=== PATIENT | female | born 1935 | race African-American/Black ===

== ENCOUNTER 2017-04-10 16:27 | Inpatient (IN) | payer MEDICARE, MEDICAID ==
[~2017-04-10] VITALS: Ht 167.6 cm; Wt 69.1 kg
[~2017-04-10 16:27] MED LIST: CARV12.545 PO; CLOP75TA16 PO; DOCU-138 PO; FERR-63 PO; LANS30TA4 PO; LIP40 PO; MELO-105 PO; METF500T7 PO
[2017-04-10] MEDS ORDERED: NITROGLYCERIN OINT 1GM/INCH UDPKT TD STA (18:03)
[2017-04-10] MEDS ORDERED: ASPIRIN 81MG TABLET PO STA (18:03)
[2017-04-10 18:43] LABS: HEMATOCRIT. 29.4 % (36.0-48.0); HEMOGLOBIN. 9.5 g/dL (12.0-16.0); MEAN CORPUSCULAR HEMOGLOBIN 27.9 pg (28.0-32.0); MEAN CORPUSCULAR VOLUME 86.2 fL (81.0-99.0); MEAN PLATELET VOLUME 8.6 fl (7.4-10.4); PLATELET 179 x1000/uL (130-400); RED BLOOD CELL COUNT 3.41 mill/uL (4.2-5.4); RED CELL DISTRIBUTION WIDTH 16.3 % (11.6-14.6)
[2017-04-10 18:49] LABS: INR 1.1; PROTHROMBIN TIME 11.2 sec (9.4-11.6)
[2017-04-10 18:54] LABS: CARBON DIOXIDE 27 mEq/L (21-32); CHLORIDE 104 mEq/L (98-107)
[2017-04-10 18:58] LABS: TROPONIN I 0.08 ng/mL (0.00-0.04)
[2017-04-10 19:00] LABS: PLATELET ESTIMATE NORMAL
[2017-04-11] VITALS (9 sets, daily range): BP systolic 116–158; BP diastolic 55–74
[2017-04-11] MEDS ORDERED: GLIM4TAB2 PO (02:06)
[2017-04-11] MEDS ORDERED: GABA-531 PO (02:06)
[2017-04-11] MEDS ORDERED: OXYB5TAB11 PO (02:06)
[2017-04-11] MEDS ORDERED: BUPR150T9 PO (02:06)
[2017-04-11] MEDS ORDERED: AMLO10TA80 PO (02:06)
[2017-04-11] MEDS ORDERED: IRBE1TAB31 PO (02:06)
[2017-04-11] MEDS ORDERED: MAGNESIUM/ALUMINUM HYDROXIDE/SIMETHICONE 30ML UDC PO PRN (03:15)
[2017-04-11] MEDS ORDERED: NITROGLYCERIN 0.4MG TABLET SL SL PRN (03:15)
[2017-04-11] MEDS ORDERED: DEXTROSE 50% WATER 50ML SYRINGE IV PRN (03:15)
[2017-04-11] MEDS: BLOOD SUGAR DIAGNOSTIC STRIP TEST SCH ×4 (07:40→21:22)
[2017-04-11] MEDS ORDERED: METFORMIN HCL 500MG TABLET PO SCH (08:10)
[2017-04-11] MEDS: INSULIN LISPRO 100 UNITS/ML SUBCUT SCH ×4 (08:10→21:00)
[2017-04-11] MEDS: NICOTINE 21MG PATCH TD SCH (08:51)
[2017-04-11] MEDS: BUPROPION HCL 150MG TABLET XL 24HR PO SCH (08:51)
[2017-04-11] MEDS: AMLODIPINE 10MG TABLET PO SCH (08:51)
[2017-04-11] MEDS: GLIMEPIRIDE 4MG TABLET PO SCH (08:51)
[2017-04-11] MEDS: GABAPENTIN 300MG CAPSULE PO SCH ×2 (08:51→18:25)
[2017-04-11] MEDS ORDERED: CLOPIDOGREL 75MG TABLET PO SCH (09:00)
[2017-04-11] MEDS ORDERED: ENOXAPARIN 30MG/0.3ML SYR SUBCUT SCH (09:00)
[2017-04-11] MEDS: CARVEDILOL 12.5MG TABLET PO SCH ×2 (09:00→21:33)
[2017-04-11] MEDS ORDERED: ASPIRIN 81MG EC TABLET PO SCH (09:00)
[2017-04-11] MEDS ORDERED: REGADENOSON 0.4 MG/5 ML IV ONE ×2 (09:45→12:14)
[2017-04-11 10:31] LABS: HEMATOCRIT. 30.9 % (36.0-48.0); HEMOGLOBIN. 10.2 g/dL (12.0-16.0); MEAN PLATELET VOLUME 8.6 fl (7.4-10.4); PLATELET 178 x1000/uL (130-400); RED BLOOD CELL COUNT 3.63 mill/uL (4.2-5.4)
[2017-04-11 10:52] LABS: TROPONIN I 0.12 ng/mL (0.00-0.04)
[2017-04-11] MEDS ORDERED: NITROGLYCERIN 0.4MG TABLET SL SL ONE ×2 (12:33→12:40)
[2017-04-11 12:40] LABS: PLATELET ESTIMATE NORMAL
[2017-04-11] MEDS ORDERED: ENOXAPARIN 30MG/0.3ML SYR SUBCUT NR (13:00)
[2017-04-11] MEDS: NITROGLYCERIN OINT 1GM/INCH UDPKT TD SCH ×4 (13:26→23:53)
[2017-04-11] MEDS ORDERED: SODIUM CHLORIDE 0.9% 250 ML IV ONE (13:45)
[2017-04-11] MEDS ORDERED: AMINOPHYLLINE IV ONE (13:45)
[2017-04-11 14:28] LABS: TOTAL IRON BINDING CAPACITY 308 ug/dL (250-450)
[2017-04-11 14:48] LABS: VITAMIN B12 SERUM 756 pg/mL (211-911)
[2017-04-11] MEDS: ASPIRIN 81MG EC TABLET PO SCH ×2 (16:22→18:25)
[2017-04-11] MEDS: SODIUM CHLORIDE 0.9% 1,000 ML IV SCH (16:48)
[2017-04-11] MEDS: PANTOPRAZOLE SODIUM 40 MG/VIAL IV SCH (18:29)
[2017-04-11] MEDS: HYDRALAZINE HCL 50MG TABLET PO SCH (20:33)
[2017-04-11] MEDS ORDERED: [UNRECOGNIZED DRUG - OTHER] PO SCH (21:00)
[2017-04-11] MEDS ORDERED: HYDROCHLOROTHIAZIDE PO SCH (21:00)
[2017-04-11] MEDS ORDERED: LOSARTAN POTASSIUM 50 MG TABLET PO SCH (21:00)
[2017-04-11] MEDS ORDERED: HYDROCHLOROTHIAZIDE 12.5MG CAPSULE PO SCH (21:00)
[2017-04-11] MEDS ORDERED: IRBESARTAN PO SCH (21:00)
[2017-04-11 21:28] LABS: CREATINE KINASE MB FRACTION 0.9 ng/mL (0.5-3.6); TROPONIN I 0.09 ng/mL (0.00-0.04)
[2017-04-11] MEDS: ATORVASTATIN CALCIUM 40MG TABLET PO SCH (21:33)
[2017-04-11] MEDS ORDERED: ENOXAPARIN 60MG/0.6ML SYR SUBCUT NR (22:00)
[2017-04-12] VITALS (11 sets, daily range): BP systolic 127–152; BP diastolic 56–74
[2017-04-12] MEDS: BLOOD SUGAR DIAGNOSTIC STRIP TEST SCH ×4 (06:11→21:07)
[2017-04-12] MEDS: NITROGLYCERIN OINT 1GM/INCH UDPKT TD SCH ×4 (06:14→20:15)
[2017-04-12] MEDS: SODIUM CHLORIDE 0.9% 1,000 ML IV SCH (06:14)
[2017-04-12] MEDS: INSULIN LISPRO 100 UNITS/ML SUBCUT SCH ×4 (06:21→21:22)
[2017-04-12] MEDS: GLIMEPIRIDE 4MG TABLET PO SCH (06:21)
[2017-04-12 06:41] LABS: HEMATOCRIT. 28.2 % (36.0-48.0); HEMOGLOBIN. 9.1 g/dL (12.0-16.0); MEAN CORPUSCULAR HEMOGLOBIN 27.8 pg (28.0-32.0); MEAN CORPUSCULAR VOLUME 85.6 fL (81.0-99.0); MEAN PLATELET VOLUME 8.9 fl (7.4-10.4); PLATELET 149 x1000/uL (130-400); RED BLOOD CELL COUNT 3.29 mill/uL (4.2-5.4); RED CELL DISTRIBUTION WIDTH 16.1 % (11.6-14.6)
[2017-04-12 07:44] LABS: PHOSPHORUS 3.2 mg/dL (2.5-4.9)
[2017-04-12] MEDS: HYDRALAZINE HCL 50MG TABLET PO SCH ×2 (09:00→21:21)
[2017-04-12] MEDS: ASPIRIN 81MG EC TABLET PO SCH ×2 (09:00→16:37)
[2017-04-12] MEDS: CARVEDILOL 12.5MG TABLET PO SCH ×2 (09:00→21:00)
[2017-04-12] MEDS ORDERED: SODIUM CHLORIDE 0.45% 1,000 ML IV SCH (09:00)
[2017-04-12] MEDS: BUPROPION HCL 150MG TABLET XL 24HR PO SCH (09:00)
[2017-04-12] MEDS ORDERED: MAGNESIUM 2 G PREMIX 50 ML IV NR (09:00)
[2017-04-12] MEDS: GABAPENTIN 300MG CAPSULE PO SCH ×2 (09:00→16:37)
[2017-04-12] MEDS: AMLODIPINE 10MG TABLET PO SCH (09:00)
[2017-04-12] MEDS: PANTOPRAZOLE SODIUM 40 MG/VIAL IV SCH (09:24)
[2017-04-12] MEDS: NICOTINE 21MG PATCH TD SCH (09:25)
[2017-04-12] MEDS: ACETYLCYSTEINE 200MG/ML 20% VIAL 4ML PO SCH ×2 (09:29→21:21)
[2017-04-12 11:21] LABS: PLATELET ESTIMATE NORMAL
[2017-04-12] MEDS ORDERED: NICARDIPINE 100MCG/ML 10ML VIAL (CATH LAB) IV ONE (14:03)
[2017-04-12] MEDS ORDERED: NITROGLYCERIN 50MCG/ML 10ML VIAL (CATH LAB) IV ONE (14:03)
[2017-04-12] MEDS ORDERED: HEPARIN SODIUM 1,000 UNIT/1ML VIAL IV ONE (14:03)
[2017-04-12] MEDS ORDERED: IODIXANOL 320MG/ML 100 ML BOTTLE IV ONE (14:16)
[2017-04-12] MEDS ORDERED: LIDOCAINE HCL 1% 20ML VIAL (Pyxis) INJ ONE ×2 (14:20→14:21)
[2017-04-12] MEDS ORDERED: ASPIRIN/SOD BICARB/CITRIC ACID 324MG TAB EFF ONE (14:24)
[2017-04-12] MEDS ORDERED: FENTANYL CITRATE/PF 50MCG/ML 2ML VIAL ONE (14:30)
[2017-04-12] MEDS ORDERED: MIDAZOLAM HCL 2 MG/2 ML VIAL ONE (14:30)
[2017-04-12] MEDS ORDERED: SODIUM CHLORIDE 0.45% 1,000 ML IV ONE (15:00)
[2017-04-12] MEDS ORDERED: MORPHINE SULFATE 2 MG/ML CPJ (NOT FOR IM USE) IV PRN (15:00)
[2017-04-12] MEDS ORDERED: ONDANSETRON HCL 4MG/2ML VIAL IV PRN (15:00)
[2017-04-12] MEDS ORDERED: ATROPINE SULFATE 1MG/10ML SYR IV PRN (15:00)
[2017-04-12] MEDS ORDERED: ACETAMINOPHEN 325MG TABLET PO PRN (15:00)
[2017-04-12 21:06] LABS: CLARITY URINE CLEAR (CLEAR); COLOR URINE YELLOW (YELLOW); GLUCOSE URINE TRACE (NEGATIVE); KETONES URINE NEGATIVE (NEGATIVE); LEUKOCYTE ESTERASE URINE NEGATIVE (NEGATIVE); NITRITE URINE NEGATIVE (NEGATIVE); OCCULT BLOOD URINE NEGATIVE (NEGATIVE); PH URINE 6.5 (4.5-8.0); PROTEIN URINE NEGATIVE (NEGATIVE); SPECIFIC GRAVITY URINE 1.013 (1.005-1.030); UROBILINOGEN URINE 0.2 E.U./dL (0.2-1.0)
[2017-04-12] MEDS: ATORVASTATIN CALCIUM 40MG TABLET PO SCH (21:21)
[2017-04-12] MEDS: ENOXAPARIN 40MG/0.4ML SYR SUBCUT SCH (21:21)
[2017-04-13] VITALS (13 sets, daily range): BP systolic 98–156; BP diastolic 53–99
[2017-04-13] MEDS: NITROGLYCERIN OINT 1GM/INCH UDPKT TD SCH ×6 (00:24→20:28)
[2017-04-13] MEDS: BLOOD SUGAR DIAGNOSTIC STRIP TEST SCH ×4 (06:22→21:10)
[2017-04-13] MEDS: INSULIN LISPRO 100 UNITS/ML SUBCUT SCH ×4 (06:23→21:21)
[2017-04-13] MEDS: GLIMEPIRIDE 4MG TABLET PO SCH (06:30)
[2017-04-13] MEDS: ASPIRIN 81MG EC TABLET PO SCH ×2 (08:09→16:54)
[2017-04-13] MEDS: PANTOPRAZOLE SODIUM 40 MG/VIAL IV SCH (08:09)
[2017-04-13] MEDS: AMLODIPINE 10MG TABLET PO SCH (08:09)
[2017-04-13] MEDS: CARVEDILOL 12.5MG TABLET PO SCH ×2 (08:09→21:00)
[2017-04-13] MEDS: GABAPENTIN 300MG CAPSULE PO SCH ×2 (08:09→16:54)
[2017-04-13] MEDS: BUPROPION HCL 150MG TABLET XL 24HR PO SCH (08:09)
[2017-04-13] MEDS: HYDRALAZINE HCL 50MG TABLET PO SCH ×2 (08:10→21:00)
[2017-04-13] MEDS: ACETYLCYSTEINE 200MG/ML 20% VIAL 4ML PO SCH (08:11)
[2017-04-13] MEDS: NICOTINE 21MG PATCH TD SCH (08:12)
[2017-04-13] MEDS ORDERED: POTASSIUM CHLORIDE 20MEQ TABLET SR PO NR (11:15)
[2017-04-13] MEDS: ENOXAPARIN 40MG/0.4ML SYR SUBCUT SCH ×2 (11:29→21:20)
[2017-04-13] MEDS ORDERED: MAGNESIUM 2 G PREMIX 50 ML IV NR ×2 (13:00→14:00)
[2017-04-13] MEDS: MAGNESIUM HYDROXIDE 400MG/5ML 30ML UDC PO PRN (16:54)
[2017-04-13 20:47] LABS: HEMATOCRIT. 29.8 % (36.0-48.0); HEMOGLOBIN. 9.7 g/dL (12.0-16.0); MEAN CORPUSCULAR HEMOGLOBIN 28.1 pg (28.0-32.0); MEAN CORPUSCULAR VOLUME 86.1 fL (81.0-99.0); MEAN PLATELET VOLUME 9.1 fl (7.4-10.4); PLATELET 152 x1000/uL (130-400); RED BLOOD CELL COUNT 3.46 mill/uL (4.2-5.4); RED CELL DISTRIBUTION WIDTH 16.4 % (11.6-14.6)
[2017-04-13 21:05] LABS: PHOSPHORUS 3.1 mg/dL (2.5-4.9)
[2017-04-13 21:17] LABS: PLATELET ESTIMATE NORMAL
[2017-04-13] MEDS: ATORVASTATIN CALCIUM 40MG TABLET PO SCH (21:20)
[2017-04-14] VITALS (16 sets, daily range): BP systolic 97–150; BP diastolic 55–85
[2017-04-14] MEDS: NITROGLYCERIN OINT 1GM/INCH UDPKT TD SCH ×7 (00:18→23:51)
[2017-04-14] MEDS: INSULIN LISPRO 100 UNITS/ML SUBCUT SCH ×4 (06:02→20:43)
[2017-04-14] MEDS: BLOOD SUGAR DIAGNOSTIC STRIP TEST SCH ×4 (06:02→20:27)
[2017-04-14 06:54] LABS: INR 1.1; PARTIAL THROMBOPLASTIN TIME 35.8 sec (23.4-31.0)
[2017-04-14 07:03] LABS: HEMATOCRIT. 27.7 % (36.0-48.0); HEMOGLOBIN. 9.2 g/dL (12.0-16.0); MEAN CORPUSCULAR HEMOGLOBIN 28.5 pg (28.0-32.0); MEAN CORPUSCULAR VOLUME 85.5 fL (81.0-99.0); MEAN PLATELET VOLUME 9.1 fl (7.4-10.4); PLATELET 151 x1000/uL (130-400); RED BLOOD CELL COUNT 3.24 mill/uL (4.2-5.4); RED CELL DISTRIBUTION WIDTH 16.2 % (11.6-14.6)
[2017-04-14 07:27] LABS: PHOSPHORUS 2.9 mg/dL (2.5-4.9)
[2017-04-14] MEDS: GLIMEPIRIDE 2MG TABLET PO SCH (08:00)
[2017-04-14] MEDS: ENOXAPARIN 40MG/0.4ML SYR SUBCUT SCH (08:01)
[2017-04-14] MEDS: ASPIRIN 81MG EC TABLET PO SCH ×2 (08:02→16:50)
[2017-04-14] MEDS: BUPROPION HCL 150MG TABLET XL 24HR PO SCH (08:02)
[2017-04-14] MEDS: PANTOPRAZOLE SODIUM 40 MG/VIAL IV SCH (08:02)
[2017-04-14] MEDS: GABAPENTIN 300MG CAPSULE PO SCH ×2 (08:02→16:46)
[2017-04-14] MEDS: CARVEDILOL 12.5MG TABLET PO SCH ×2 (08:09→20:26)
[2017-04-14] MEDS: HYDRALAZINE HCL 50MG TABLET PO SCH ×2 (08:10→20:25)
[2017-04-14] MEDS: AMLODIPINE 10MG TABLET PO SCH (08:10)
[2017-04-14] MEDS: NICOTINE 21MG PATCH TD SCH (08:13)
[2017-04-14 11:15] LABS: PLATELET ESTIMATE NORMAL
[2017-04-14] MEDS ORDERED: ACETAMINOPHEN 325MG TABLET PO PRN (12:30)
[2017-04-14] MEDS ORDERED: NITROGLYCERIN 0.4MG TABLET SL SL PRN (12:30)
[2017-04-14] MEDS ORDERED: ALPRAZOLAM 0.25 MG TABLET PO PRN (12:30)
[2017-04-14] MEDS ORDERED: CLOPIDOGREL 75MG TABLET PO SCH (13:45)
[2017-04-14] MEDS: ATORVASTATIN CALCIUM 40MG TABLET PO SCH (20:26)
[2017-04-14] MEDS: ALLOPURINOL 300 MG TABLET PO SCH (20:27)
[2017-04-14] MEDS ORDERED: ASCORBIC ACID 500 MG TABLET PO SCH (21:00)
[2017-04-14] MEDS ORDERED: DOCUSATE SODIUM 100MG CAPSULE PO SCH (21:00)
[2017-04-14] MEDS ORDERED: CHLORHEXIDINE GLUCONATE 4% EXTERNAL USE TOP SCH (21:00)
[2017-04-14] MEDS ORDERED: BISACODYL 10MG SUPP PR PRN (21:00)
[2017-04-14] MEDS ORDERED: CARVEDILOL 25MG TABLET PO SCH (21:00)
[2017-04-15] VITALS (12 sets, daily range): BP systolic 110–153; BP diastolic 60–89
[2017-04-15] MEDS: NITROGLYCERIN OINT 1GM/INCH UDPKT TD SCH ×4 (04:01→20:28)
[2017-04-15] MEDS: ALLOPURINOL 300 MG TABLET PO SCH (05:47)
[2017-04-15] MEDS: BLOOD SUGAR DIAGNOSTIC STRIP TEST SCH ×4 (05:48→21:15)
[2017-04-15] MEDS: INSULIN LISPRO 100 UNITS/ML SUBCUT SCH ×4 (05:48→21:00)
[2017-04-15] MEDS ORDERED: BLOOD SUGAR DIAGNOSTIC STRIP TEST ONE (06:00)
[2017-04-15] MEDS ORDERED: CEFAZOLIN 2,000 MG in DEXT 5% WATER 100 ML IV NR (06:00)
[2017-04-15 06:43] LABS: HEMATOCRIT. 30.6 % (36.0-48.0); MEAN CORPUSCULAR HEMOGLOBIN 28.7 pg (28.0-32.0); MEAN PLATELET VOLUME 9.2 fl (7.4-10.4); PLATELET 135 x1000/uL (130-400); PROTHROMBIN TIME 10.8 sec (9.4-11.6); RED BLOOD CELL COUNT 3.47 mill/uL (4.2-5.4); RED CELL DISTRIBUTION WIDTH 16.6 % (11.6-14.6)
[2017-04-15] MEDS: GLIMEPIRIDE 2MG TABLET PO SCH (06:50)
[2017-04-15 07:25] LABS: CARBON DIOXIDE 27 mEq/L (21-32); CHLORIDE 105 mEq/L (98-107)
[2017-04-15] MEDS: ASPIRIN 81MG EC TABLET PO SCH ×2 (08:51→17:50)
[2017-04-15] MEDS: CARVEDILOL 12.5MG TABLET PO SCH ×2 (08:51→20:29)
[2017-04-15] MEDS: GABAPENTIN 300MG CAPSULE PO SCH ×2 (08:51→17:50)
[2017-04-15] MEDS: BUPROPION HCL 150MG TABLET XL 24HR PO SCH (08:51)
[2017-04-15] MEDS: AMLODIPINE 10MG TABLET PO SCH (08:52)
[2017-04-15] MEDS: HYDRALAZINE HCL 50MG TABLET PO SCH ×3 (08:52→20:30)
[2017-04-15] MEDS: PANTOPRAZOLE SODIUM 40 MG/VIAL IV SCH (08:52)
[2017-04-15] MEDS: NICOTINE 21MG PATCH TD SCH (08:53)
[2017-04-15] MEDS ORDERED: CHLORHEXIDINE GLUCONATE 4% EXTERNAL USE TOP SCH (09:00)
[2017-04-15] MEDS ORDERED: AMLODIPINE 5MG TABLET PO SCH (09:00)
[2017-04-15] MEDS ORDERED: GELATIN SPONGE,ABSORBABLE SZ 100 ONE (09:52)
[2017-04-15] MEDS ORDERED: HEPARIN 5000 UNITS/ML VIAL ONE (09:53)
[2017-04-15] MEDS ORDERED: METHYLENE BLUE 50 MG/10 ML AMP IV ONE (09:53)
[2017-04-15] MEDS ORDERED: THROMBIN (BOVINE) 5000 UNITS/VIAL TOP ONE ×2 (09:54→09:55)
[2017-04-15] MEDS ORDERED: BACITRACIN ZINC 15GM TUBE TOP ONE (09:54)
[2017-04-15] MEDS ORDERED: SKIN ADHESIVE 0.7 GM EA TOP ONE (09:54)
[2017-04-15] MEDS ORDERED: BACITRACIN 50,000 UNITS/VIAL ONE (09:55)
[2017-04-15] MEDS ORDERED: NORMAL SALINE 0.9% 10 ML SYR ONE (09:55)
[2017-04-15] MEDS ORDERED: AMINOCAPROIC ACID 10,000 MG in SODIUM CHLORIDE 0.9% 460 ML IV ONE (10:30)
[2017-04-15] MEDS ORDERED: NOREPINEPHRINE 4 MG in DEXT 5% WATER 246 ML IV ONE (10:30)
[2017-04-15] MEDS ORDERED: DEL NIDO ELECTROLYTE-S(PH 7.4) 1,000 ML IV ONE ×2 (10:30)
[2017-04-15] MEDS ORDERED: CEFAZOLIN 2,000 MG in DEXT 5% WATER 100 ML IV ONE (10:30)
[2017-04-15] MEDS ORDERED: PAPAVERINE HCL 180MG in SODIUM CHLORIDE 0.9% 24ML IV ONE (10:30)
[2017-04-15] MEDS ORDERED: INSULIN REGULAR (DRIP) 100 UNITS in SODIUM CHLORIDE 0.9% 99 ML IV ONE (10:30)
[2017-04-15] MEDS ORDERED: EPINEPHRINE 4 MG in DEXT 5% WATER 246 ML IV ONE (10:30)
[2017-04-15] MEDS ORDERED: DOBUTAMINE HCL 250 MG in DEXT 5% WATER 230 ML IV ONE (10:30)
[2017-04-15] MEDS ORDERED: NICARDIPINE 40MG/200ML PREMIX 200 ML IV ONE (10:30)
[2017-04-15 11:18] LABS: PLATELET ESTIMATE NORMAL
[2017-04-15] MEDS: ATORVASTATIN CALCIUM 40MG TABLET PO SCH (20:29)
[2017-04-15] MEDS: MAGNESIUM HYDROXIDE 400MG/5ML 30ML UDC PO PRN (21:20)
[2017-04-16] VITALS (8 sets, daily range): BP systolic 104–120; BP diastolic 48–75
[2017-04-16] MEDS: NITROGLYCERIN OINT 1GM/INCH UDPKT TD SCH ×3 (00:47→08:59)
[2017-04-16] MEDS: HYDRALAZINE HCL 50MG TABLET PO SCH (06:00)
[2017-04-16 06:44] LABS: HEMATOCRIT. 26.8 % (36.0-48.0); HEMOGLOBIN. 8.8 g/dL (12.0-16.0); MEAN CORPUSCULAR VOLUME 84.9 fL (81.0-99.0); MEAN PLATELET VOLUME 9.6 fl (7.4-10.4); PLATELET 150 x1000/uL (130-400); RED BLOOD CELL COUNT 3.15 mill/uL (4.2-5.4); RED CELL DISTRIBUTION WIDTH 16.3 % (11.6-14.6)
[2017-04-16] MEDS: BLOOD SUGAR DIAGNOSTIC STRIP TEST SCH ×2 (06:50→11:57)
[2017-04-16] MEDS: INSULIN LISPRO 100 UNITS/ML SUBCUT SCH ×2 (06:58→11:57)
[2017-04-16] MEDS: GLIMEPIRIDE 2MG TABLET PO SCH (07:01)
[2017-04-16 07:10] LABS: CARBON DIOXIDE 28 mEq/L (21-32); CHLORIDE 105 mEq/L (98-107)
[2017-04-16] MEDS: BUPROPION HCL 150MG TABLET XL 24HR PO SCH (08:56)
[2017-04-16] MEDS: ASPIRIN 81MG EC TABLET PO SCH (08:56)
[2017-04-16] MEDS: GABAPENTIN 300MG CAPSULE PO SCH (08:56)
[2017-04-16] MEDS: CARVEDILOL 12.5MG TABLET PO SCH (08:57)
[2017-04-16] MEDS: PANTOPRAZOLE SODIUM 40 MG/VIAL IV SCH (08:57)
[2017-04-16] MEDS: AMLODIPINE 10MG TABLET PO SCH (08:57)
[2017-04-16 11:57] LABS: TOTAL IRON BINDING CAPACITY 243 ug/dL (250-450)
[2017-04-16 12:36] LABS: FOLIC ACID (FOLATE) SERUM 10.2 ng/mL (>5.38)
[2017-04-16] MEDS ORDERED: SODIUM CHLORIDE 0.9% 1,000 ML IV SCH (15:00)
[2017-04-16 16:20] LABS: PLATELET ESTIMATE NORMAL
[2017-04-17] MEDS ORDERED: FAMOTIDINE 20MG TABLET PO SCH (09:00)
== END 2017-04-16 14:20 | disposition short-term general hospital (02) | DRG 281 ==
LOC: ER 16:38 → 7WST 19:16 → EDBEDREQ 19:27 → ENRESERV 21:39 → 3WST 04-11 13:13
PROVIDERS: ADMIT Internal Medicine Pulmonary Disease; ATTEND Internal Medicine Pulmonary Disease
PROC: B2111ZZ Fluoroscopy of Multiple Coronary Arteries using Low Osmolar Contrast (ICD-10-PCS; principal; 2017-04-12)
DX: I21.4 Non-ST elevation (NSTEMI) myocardial infarction (principal); N17.9 Acute kidney failure, unspecified; E11.22 Type 2 diabetes mellitus with diabetic chronic kidney disease; E11.51 Type 2 diabetes mellitus with diabetic peripheral angiopathy without gangrene; E05.90 Thyrotoxicosis, unspecified without thyrotoxic crisis or storm; D63.8 Anemia in other chronic diseases classified elsewhere; E78.00 Pure hypercholesterolemia, unspecified; E78.5 Hyperlipidemia, unspecified; I25.110 Atherosclerotic heart disease of native coronary artery with unstable angina pectoris; G51.0 Bell's palsy; K30 Functional dyspepsia; I13.10 Hypertensive heart and chronic kidney disease without heart failure, with stage 1 through stage 4 chronic kidney disease, or unspecified chronic kidney disease; N18.9 Chronic kidney disease, unspecified; F17.210 Nicotine dependence, cigarettes, uncomplicated; I25.2 Old myocardial infarction; Z79.899 Other long term (current) drug therapy; Z79.84 Long term (current) use of oral hypoglycemic drugs; Z88.6 Allergy status to analgesic agent; Z88.8 Allergy status to other drugs, medicaments and biological substances; Z90.5 Acquired absence of kidney; Z90.11 Acquired absence of right breast and nipple; Z85.3 Personal history of malignant neoplasm of breast; Z85.528 Personal history of other malignant neoplasm of kidney; Z82.49 Family history of ischemic heart disease and other diseases of the circulatory system
CPT/HCPCS: 36415; 71010; 76770; 78452; 80048; 80053; 81001; 82550; 82553; 82607; 82746; 82962; 83540; 83550; 83690; 83735; 84100; 84443; 84484; 85025; 85044; 85610; 85730; 86850; 86900; 86920; 93005; 93017; 93306; 93455; 93880; 93923; 99285; A4216; A9500; C1725; C1769; C1887; C1893; C9113; J0171; J0690; J1250; J1644; J1650; J1815; J2250; J2270; J2440; J2785; J3010; J3475; J3490; J7030; J7040; J7050; J7060; J7608; Q9967; Q9968